=== PATIENT | female | born 1990 | race Caucasian/White ===

== ENCOUNTER → 2023-12-14 | Outpatient (CLI) | payer OTHER ==
--- NOTE | 2023-12-15 08:59 | MM ---
Reason for Exam: Screening (asymptomatic). Patient History: Menarche at age 10. First Full-Term at age 14. Premenopausal. Paternal grandmother had breast cancer, age 56. Maternal aunt had breast cancer, age 35. Maternal aunt had breast cancer, age 21. Maternal cousin had breast cancer, age 35. Maternal cousin had breast cancer, age 42. Tissue Density: The breast tissue is heterogeneously dense. This may lower the sensitivity of mammography. Findings: Analyzed By CAD. There is no suspicious group of microcalcifications or new suspicious mass in either breast. Asymmetric density upper outer quadrant right breast. No prior exams. Possibly related to lymph node. Additional imaging recommended. Overall Assessment: Incomplete: need additional imaging evaluation, BI-RAD 0 Management: Special View Mammogram of the right breast. . Patient should continue monthly self-breast exams. A clinical breast exam by your physician is recommended on an annual basis. This exam should not preclude additional follow-up of suspicious palpable abnormalities. Note on Sara scores and lifetime risk: 1. A Sara score greater than 3% is considered moderate risk. If this is the case, consider specialist referral to assess eligibility for a risk reducing agent. 2. If overall lifetime risk for the development of breast cancer is 20% or higher, the patient may qualify for future screening with alternating mammogram and breast MRI. Electronically signed and approved by: Eduardo Chen M.D. Radiologis
== END | disposition home or self-care (01) ==
LOC: RADMAMWWP 10:17
PROVIDERS: ATTEND Obstetrics & Gynecology
DX: Z12.31 Encounter for screening mammogram for malignant neoplasm of breast (principal); Z80.3 Family history of malignant neoplasm of breast
CPT/HCPCS: 77063; 77067

== ENCOUNTER → 2023-12-20 | Outpatient (CLI) | payer OTHER ==
--- NOTE | 2023-12-20 12:37 | MM ---
Reason for Exam: Additional evaluation requested from abnormal screening. Last screening mammogram was performed less than 1 month ago. Patient History: Menarche at age 10. First Full-Term at age 14. Premenopausal. Paternal grandmother had breast cancer, age 56. Maternal aunt had breast cancer, age 35. Maternal aunt had breast cancer, age 21. Maternal cousin had breast cancer, age 35. Prior Study Comparison: 12/14/2023 Bilateral MG 3D screening mammo w/cad, [facility]. Tissue Density: Right: The breast tissue is heterogeneously dense. This may lower the sensitivity of mammography. Findings: Analyzed By CAD. Under compression appears to be partial dispersion of a density within the medial left breast on the craniocaudal projection. This area appears persistent on tomography. Ultrasound is recommended for additional evaluation. There is a persistent rounded density with partially obscured margins upper outer aspect left breast measuring 0.6 cm with partially obscured margins. This is 8 cm nipple. Additional evaluation with ultrasound is recommended. Overall Assessment: Incomplete: need additional imaging evaluation, BI-RAD 0 Management: Diagnostic Breast Ultrasound of the left breast. A negative mammogram report should not preclude additional follow up of suspicious palpable abnormalities. Patient should continue monthly self breast exam. A clinical breast exam by your physician is recommended on an annual basis and results should be correlated with mammographic findings. Electronically signed and approved by: Sammy Arriaga D.O. Radiologis
--- NOTE | 2023-12-20 13:05 | USB ---
Reason for Exam: Additional evaluation requested from abnormal screening. Patient History: Menarche at age 10. First Full-Term at age 14. Premenopausal. Paternal grandmother had breast cancer, age 56. Maternal aunt had breast cancer, age 35. Maternal aunt had breast cancer, age 21. Maternal cousin had breast cancer, age 35. Technique: Method: Targeted. Prior Study Comparison: 12/14/2023 Bilateral MG 3D screening mammo w/cad, [facility]. Findings: The upper outer quadrant of the right breast, the axilla of the right breast and the retroareolar of the right breast were scanned. No solid or cystic masses are identified.. Overall Assessment: Negative, BI-RAD 1 Management: Diagnostic Mammogram of the right breast in 6 months. A clinical breast exam by your physician is recommended on an annual basis and results should be correlated with mammographic findings. This exam should not preclude additional follow-up of suspicious palpable abnormalities. Results were given to the patient verbally at the time of exam. Electronically signed and approved by: Sammy Arriaga D.O. Radiologis
== END | disposition home or self-care (01) ==
LOC: RADMAMWWP 10:34
PROVIDERS: ATTEND Obstetrics & Gynecology
DX: R92.331 Mammographic heterogeneous density, right breast (principal); Z80.3 Family history of malignant neoplasm of breast
CPT/HCPCS: 77065; 76642; G0279; 77061